=== PATIENT | female | born 1995 | race Hispanic/Latino ===

== ENCOUNTER 2017-06-07 21:39 | Emergency (ER) | payer SELFPAY ==
[~2017-06-07] VITALS: Ht 162.6 cm; Wt 72.0 kg
[~2017-06-07 21:39] MED LIST: AUGMENTIN500TAB PO; LORTAB 1010 MG PO; PRENATA9 PO
[2017-06-07] MEDS ORDERED: PROVENTIL0.083 % IN (22:00)
[2017-06-07 22:38] LABS: INFLUENZA A NONE DETECTED (NONE DETECT); INFLUENZA B NONE DETECTED (NONE DETECT)
[2017-06-07 23:15] LABS: URINE BILIRUBIN - DIPSTICK NEGATIVE (NEGATIVE); URINE BLOOD DIPSTICK SMALL (NEGATIVE); URINE COLOR YELLOW; URINE GLUCOSE - DIPSTICK NEGATIVE (NEGATIVE); URINE KETONE NEGATIVE (NEGATIVE); URINE LEUK ESTERASE NEGATIVE (Negative); URINE NITRITE - DIPSTICK NEGATIVE (Negative); URINE PH 7.5 (4.5-8.0); URINE PROTEIN - DIPSTICK NEGATIVE (NEG-TRACE); URINE SPECIFIC GRAVITY 1.015
[2017-06-07 23:20] LABS: URINE CLARITY CLOUDY
[2017-06-07 23:28] LABS: URINE BACTERIA MODERATE hpf; URINE SQUAMOUS EPITHELIAL CELL FEW EPI/hpf (0-FEW); URINE WBC 0-2 WBC/hpf (0-5)
[2017-06-07 23:29] LABS: URINE AMORPH SEDIMENT MODERATE hpf (NONE-FEW)
[2017-06-08 01:30] VITALS: BP 125/74
[2017-06-08] MEDS ORDERED: Levaquin PO (01:39)
== END 2017-06-08 02:00 | disposition home or self-care (01) | DRG 203 ==
LOC: ED 21:39
PROVIDERS: Emergency Medicine
DX: J45.901 Unspecified asthma with (acute) exacerbation (principal); R91.8 Other nonspecific abnormal finding of lung field

== ENCOUNTER 2018-05-12 00:25 | Emergency (ER) | payer OTHER ==
[~2018-05-12] VITALS: Ht 162.6 cm; Wt 77.7 kg
[~2018-05-12 00:25] MED LIST changes: +Levaquin PO; +PROVENTIL0.083 % IN
[2018-05-12] MEDS ORDERED: KEFLEX500 M1 PO (01:04)
[2018-05-12] MEDS ORDERED: IBUPROFEN600 MG PO (01:04)
[2018-05-12 01:44] VITALS: BP 106/74
== END 2018-05-12 01:51 | disposition home or self-care (01) ==
LOC: ED 00:25
DX: O91.23 Nonpurulent mastitis associated with lactation (principal); R50.9 Fever, unspecified